=== PATIENT | female | born 1980 | race Caucasian/White ===

== ENCOUNTER 2017-07-11 22:32 | Emergency (ER) | payer MEDICAID, OTHER ==
[~2017-07-11] VITALS: Ht 172.7 cm; Wt 84.4 kg
[2017-07-11 22:59] VITALS: BP 150/65
[2017-07-12] MEDS ORDERED: ONDANSETRON ODT 4 MG PO ONE (01:00)
[2017-07-12] MEDS ORDERED: IBUPROFEN 200 MG TABLET PO ONE (01:00)
== END 2017-07-12 01:06 | disposition home or self-care (01) ==
LOC: ED 23:59
DX: S06.0X0A Concussion without loss of consciousness, initial encounter (principal); F17.200 Nicotine dependence, unspecified, uncomplicated; Y04.8XXA Assault by other bodily force, initial encounter; Y93.89 Activity, other specified; Y99.8 Other external cause status; Y92.89 Other specified places as the place of occurrence of the external cause
CPT/HCPCS: 70450; 99284